=== PATIENT | female | born 1960 | race Two or more races ===

== ENCOUNTER 2018-05-08 00:56 | Emergency (ER) | payer OTHER ==
[~2018-05-08] VITALS: Ht 154.9 cm; Wt 67.6 kg
[~2018-05-08 00:56] MED LIST: CALAN80 MG; ORPH100T PO; PLAVIX75 MG; PNEU16DI2; PROMETHAZINE-C120 ML PO; TESSALON PERLE100 MG PO; ZANAFLEX4 M1 PO; ZITHROMAX TRI-500 MG PO
== END 2018-05-08 03:33 | disposition designated cancer center or children's hospital (05) ==
LOC: ER 00:56
DX: I63.9 Cerebral infarction, unspecified (principal)

== ENCOUNTER 2019-02-11 13:58 | Outpatient (CLI) | payer OTHER | END 2019-02-11 14:11 | disposition home or self-care (01) | LOC: RAD 501 13:58 | DX: M25.419 Effusion, unspecified shoulder (principal); M75.01 Adhesive capsulitis of right shoulder; M75.21 Bicipital tendinitis, right shoulder ==

== ENCOUNTER 2019-02-18 10:38 | Outpatient (CLI) | payer OTHER | END 2019-02-18 11:08 | disposition home or self-care (01) | LOC: RAD 10:38 | DX: R07.1 Chest pain on breathing (principal); G89.11 Acute pain due to trauma ==

== ENCOUNTER → 2019-11-07 | Outpatient (CLI) | payer OTHER | END | disposition home or self-care (01) | LOC: TOM 11:46 | DX: M75.01 Adhesive capsulitis of right shoulder (principal); M75.21 Bicipital tendinitis, right shoulder; M25.411 Effusion, right shoulder ==